=== PATIENT | male | born 1955 | race Two or more races ===

== ENCOUNTER 2017-10-18 12:55 | Emergency (ER) | payer MEDICAID ==
[~2017-10-18] VITALS: Ht 177.8 cm; Wt 83.9 kg
[2017-10-18 12:55] VITALS: BP 140/78
== END 2017-10-18 14:05 | disposition home or self-care (01) ==
LOC: ER 12:56
DX: F12.10 Cannabis abuse, uncomplicated (principal)
CPT/HCPCS: A4606; Z7610